=== PATIENT | male | born 1955 | race American Indian/Alaskan Native ===

== ENCOUNTER 2016-05-10 19:20 | Emergency (ER) | payer BC ==
[2016-05-10 19:29] VITALS: BP 122/81; TEMP 97.8; O2SAT 100
[2016-05-10] MEDS ORDERED: Sodium Chloride 0.9% 1,000 ML IV ONE ×2 (19:54→21:30)
--- NOTE | 2016-05-10 20:00 | C.PDOC ---
History Of Present Illness 60 year old male presents to the ED with complaints of headache, dizziness, and shortness of breath for about one month. Patient denies any fever, nausea, and vomiting. Chief Complaint (Nursing): Shortness Of Breath History Per: Patient History/Exam Limitations: no limitations Onset/Duration Of Symptoms: Persistent (for about one month) Current Symptoms Are (Timing): Still Present Associated Symptoms: denies: Fever, Chills Past Medical History Reviewed: Historical Data, Nursing Documentation, Vital Signs Vital Signs: Last Vital Signs Temp 97.8 F 05/10/16 19:26 Pulse 69 05/10/16 19:26 Resp 17 05/10/16 19:44 BP 122/81 05/10/16 19:26 Pulse Ox 100 05/11/16 01:02 Family History: States: Unknown Family Hx - Social History Hx Alcohol Use: No Hx Substance Use: No - Immunization History Hx Tetanus Toxoid Vaccination: Yes Hx Influenza Vaccination: No Hx Pneumococcal Vaccination: No Review Of Systems Constitutional: Negative for: Fever, Chills Respiratory: Positive for: Shortness of Breath Gastrointestinal: Negative for: Nausea, Vomiting, Abdominal Pain, Diarrhea Neurological: Positive for: Headache, Dizziness Physical Exam - Physical Exam Appears: Non-toxic, No Acute Distress Skin: Warm, Dry Head: Normacephalic, Other (supple ) Eye(s): bilateral: PERRL, EOMI Ear(s): Bilateral: Normal Neck: Normal ROM, Supple Chest: Symmetrical, No Deformity Cardiovascular: Rhythm Regular, No Murmur Respiratory: No Accessory Muscle Use, No Rales, No Rhonchi, No Stridor, No Wheezing Gastrointestinal/Abdominal: Soft, No Tenderness, No Distention, No Guarding, No Rebound Extremity: Normal ROM, No Tenderness ED Course And Treatment - Laboratory Results Result Diagrams: 05/10/16 20:06 05/10/16 20:06 O2 Sat by Pulse Oximetry: 100 Disposition Counseled Patient/Family Regarding: Diagnosis - Disposition Referrals: [facility] [Outside] Disposition Time: 00:59 Condition: STABLE Instructions: Dehydration (DC) - POA Present On Arrival: None - Clinical Impression Clinical Impression: Dehydration syndrome - Scribe Statement The provider has reviewed the documentation as recorded by the Scribchantal Gomez All medical record entries made by the Scribe were at my direction and personally dictated by me. I have reviewed the chart and agree that the record accurately reflects my personal performance of the history, physical exam, medical decision making, and the department course for this patient. I have also personally directed, reviewed, and agree with the discharge instructions and disposition.
[2016-05-10] MEDS ORDERED: Sodium Chloride 0.9% 1,000 ML ONE (20:05)
[2016-05-10 20:20] LABS: BASO % 0.5 % (0.0-2.0); EOS # 0.1 K/uL (0.0-0.7); EOS % 2.2 % (0.0-4.0); LYMPH # 2.6 K/uL (1.0-4.3); LYMPH % 45.7 % (20.0-40.0); MEAN CELL VOLUME 88.2 fL (80.0-94.0); MEAN CORPUSCULAR HEMOGLOBIN 29.6 pg (27.0-31.0); MEAN CORPUSCULAR HGB CONC 33.6 g/dL (33.0-37.0); MEAN PLATELET VOLUME 9.4 fL (7.2-11.7); MONO # 0.5 K/uL (0.0-0.8); MONO % 9.5 % (0.0-10.0); NRBC % 0.1 % (0.0-2.0); RED CELL DISTRIBUTION WIDTH 13.6 % (11.5-14.5); WHITE BLOOD COUNT 5.7 K/uL (4.8-10.8)
[2016-05-10 20:26] LABS: CHLORIDE 98 mmol/L (98-107); SODIUM 139 mmol/L (132-148)
[2016-05-10 20:27] LABS: POTASSIUM 4.3 mmol/L (3.6-5.2)
[2016-05-10 20:29] LABS: ALB/GLOB RATIO 1.1 (1.0-2.1); ALKALINE PHOSPHATASE 51 U/L (38-126); ALT/SGPT 25 U/L (21-72); AST/SGOT 38 U/L (17-59); BILIRUBIN,TOTAL 0.6 mg/dL (0.2-1.3); BLOOD UREA NITROGEN 11 mg/dL (9-20); CARBON DIOXIDE 25 mmol/L (22-30); GFR AFRICAN-AMERICAN > 60; GLUCOSE,RANDOM 75 mg/dL (75-110); TOTAL PROTEIN 8.1 g/dL (6.3-8.3)
[2016-05-10 20:30] LABS: CALCIUM 8.7 mg/dl (8.6-10.4)
[2016-05-10 20:32] LABS: RBC URINE 2 /hpf (0-3); URINE BACTERIA RARE (<OCC); URINE BILIRUBIN NEGATIVE (NEGATIVE); URINE BLOOD NEGATIVE (NEGATIVE); URINE COLOR Yellow (YELLOW); URINE GLUCOSE (UA) NORMAL (Normal); URINE KETONE 1+ mg/dL (NEGATIVE); URINE LEUKOCYTE ESTERASE NEG Leu/uL (Negative); URINE PROTEIN 1+ mg/dL (NEGATIVE); WBC URINE 1 /hpf (0-5)
[2016-05-10 22:44] LABS: ALCOHOL SERUM < 10 mg/dl (0-10)
[2016-05-11 01:17] VITALS: PULSE 91; RESP 20
--- NOTE | 2016-05-11 08:22 | CT ---
PROCEDURE: CT HEAD WITHOUT CONTRAST. HISTORY: Headache COMPARISON: None available. TECHNIQUE: Axial computed tomography images were obtained through the head/brain without intravenous contrast. This CT exam was performed using one or more of the following dose reduction techniques: Automated exposure control, adjustment of the mA and/or kV according to patient size, and/or use of iterative reconstruction technique. Radiation dose: Total exam DLP = 953 mGy-cm. FINDINGS: HEMORRHAGE: No intracranial hemorrhage. BRAIN: No mass effect or edema. No atrophy or chronic microvascular ischemic changes. VENTRICLES: Unremarkable. No hydrocephalus. CALVARIUM: Unremarkable. PARANASAL SINUSES: Unremarkable as visualized. No significant inflammatory changes. MASTOID AIR CELLS: Unremarkable as visualized. No inflammatory changes. OTHER FINDINGS: Calcific atherosclerosis of the bilateral carotid siphon. IMPRESSION: No acute intracranial abnormality. If focal neurologic deficit persists, consider MRI. These findings were preliminarily reported at 8:41 p.m. on 05/10/[address] Guillaume Reyes from [facility].
--- NOTE | 2016-05-11 08:45 | RAD ---
HISTORY: Shortness of breath COMPARISON: No prior. TECHNIQUE: Chest PA and lateral FINDINGS: LUNGS: No active pulmonary disease. PLEURA: No significant pleural effusion identified. No pneumothorax apparent. CARDIOVASCULAR: Normal. OSSEOUS STRUCTURES: No significant abnormalities. VISUALIZED UPPER ABDOMEN: Normal. OTHER FINDINGS: None. IMPRESSION: No active disease.
--- NOTE | 2016-05-11 23:14 | CARD ---
APPROVED REPORT EKG Measurement Heart [id number] MI [id number] <Conclusion> Sinus bradycardia Early repolarization Otherwise normal ECG
== END 2016-05-11 01:16 | disposition home or self-care (01) ==
LOC: C.ER 19:20
DX: E86.0 Dehydration (principal)
CPT/HCPCS: 70450; 71020; 80053; 81001; 82009; 83880; 85025; 85378; 93005; 99285; G0480; J7040